=== PATIENT | female | born 1950 | race Two or more races ===

== ENCOUNTER 2019-05-19 22:07 | Emergency (ER) | payer MEDICARE ==
[~2019-05-19] VITALS: Ht 149.9 cm; Wt 57.6 kg
[2019-05-20 00:56] VITALS: BP 160/74
== END 2019-05-20 03:13 | disposition home or self-care (01) ==
LOC: EDBD 22:07 → ER 22:14
DX: E11.65 Type 2 diabetes mellitus with hyperglycemia (principal); I10 Essential (primary) hypertension
CPT/HCPCS: 82962